=== PATIENT | female | born 1990 | race Two or more races ===

== ENCOUNTER 2019-01-15 16:52 | Emergency (ER) | payer MEDICAID ==
[~2019-01-15] VITALS: Ht 149.9 cm; Wt 61.2 kg
[2019-01-15 17:25] VITALS: BP 109/74
== END 2019-01-15 18:32 | disposition home or self-care (01) ==
LOC: ER 16:52 → EDBD 16:52 → ER 18:32
DX: L29.9 Pruritus, unspecified (principal); B80 Enterobiasis